=== PATIENT | female | born 1990 | race American Indian/Alaskan Native ===

== ENCOUNTER 2017-11-24 15:46 | Emergency (ER) | payer OTHER ==
[2017-11-24 15:54] VITALS: BMI 25.8
[2017-11-24 15:57] VITALS: TEMP 98.6
--- NOTE | 2017-11-24 16:40 | C.PDOC ---
History Of Present Illness 27 year old female brought to the ER for medical clearance. Last Wednesday patient was diagnosed with bipolar disorder at a [facility] outpatient psychiatric clinic. Grandmother is a patient in the ICU here. Patient went up to see grandmother, became upset, and started crying and hitting fists into wall so she was brought down for evaluation. Now complaining of pain in her right wrist. Patient states she was put on psychiatric meds, which she did not take today. Denies any suicidal or homicidal ideation. PMD: Non [facility] provider Time Seen by Provider: 11/24/17 16:16 Chief Complaint (Nursing): Medical Clearance History Per: Patient, Family History/Exam Limitations: no limitations Onset/Duration Of Symptoms: Mins Current Symptoms Are (Timing): Still Present Quality: Aching Severity: Mild Pain Scale Rating Of: 2 Exacerbating Factor(s): Movement Recent travel outside of the [place]: No Past Medical History Reviewed: Historical Data, Nursing Documentation, Vital Signs Vital Signs: Last Vital Signs Temp 98.6 F 11/24/17 17:35 Pulse 90 11/24/17 17:35 Resp 18 11/24/17 17:35 BP 111/72 11/24/17 17:35 Pulse Ox 100 11/24/17 17:35 - Medical History PMH: Bipolar Disorder Surgical History: No Surg Hx Family History: States: No Known Family Hx - Social History Hx Alcohol Use: No Hx Substance Use: No - Immunization History Hx Tetanus Toxoid Vaccination: No Hx Influenza Vaccination: No Hx Pneumococcal Vaccination: No Review Of Systems Except As Marked, All Systems Reviewed And Found Negative. Constitutional: Negative for: Fever Cardiovascular: Negative for: Chest Pain Respiratory: Negative for: Shortness of Breath Gastrointestinal: Negative for: Vomiting Musculoskeletal: Positive for: Other (right wrist pain) Psych: Positive for: Anxiety, Other (Agitated, upset). Negative for: Suicidal ideation (or homicidal ideation) Physical Exam - Physical Exam Appears: Non-toxic, No Acute Distress Skin: Normal Color, Warm, Dry Head: Atraumatic, Normacephalic Eye(s): bilateral: Normal Inspection, PERRL, EOMI Nose: Normal Oral Mucosa: Moist Neck: Normal ROM, Supple Chest: Symmetrical Cardiovascular: Rhythm Regular Respiratory: Normal Breath Sounds Extremity: Normal ROM Pulses: Left Radial: Normal, Right Radial: Normal Neurological/Psych: Oriented x3, Normal Speech Gait: Steady ED Course And Treatment O2 Sat by Pulse Oximetry: 95 (RA) Pulse Ox Interpretation: Normal - Other Rad right wrist X-Ray: Viewed By Me, Read By Radiologist Interpretation: No acute displaced fracture or dislocation identified. Progress Note: Patient crying and upset. Right wrist full ROM. Advised to take her prescribed psych drugs. On re-evaluation feeling better, calm. Discharged in stable condition. Advised to follow up with Psych services Reassessment Condition: Improved Medical Decision Making Medical Decision Making: Time: 16:32 Initial Plan: * X-ray Right Wrist X-Ray findings discussed w/ patient. Patient is stable for discharge home. Advised to take medications as prescribed and follow up outpatient. Disposition Counseled Patient/Family Regarding: Need For Followup - Disposition Referrals: [facility] [Outside] [facility] [Outside] Disposition: HOME/ ROUTINE Disposition Time: 18:20 Condition: STABLE Additional Instructions: Take medications as directed Follow up with your mental health providers Instructions: Panic Disorder, Wrist Sprain (DC) Forms: [employer] (Hungarian) - POA Present On Arrival: None - Clinical Impression Clinical Impression: Anxiety, Contusion, wrist - PA / EDUCATION REPORTER / Resident Statement MD/DO has reviewed & agrees with the documentation as recorded. - Scribe Statement The provider has reviewed the documentation as recorded by the Scribe (Christine Sherman) All medical record entries made by the Scribe were at my direction and personally dictated by me. I have reviewed the chart and agree that the record accurately reflects my personal performance of the history, physical exam, medical decision making, and the department course for this patient. I have also personally directed, reviewed, and agree with the discharge instructions and disposition.
--- NOTE | 2017-11-24 17:21 | RAD ---
PROCEDURE: Right Wrist Radiographs. HISTORY: pain COMPARISON: None available. FINDINGS: BONES: No acute displaced fracture. JOINTS: No dislocation. SOFT TISSUES: Unremarkable. No evidence of radiopaque foreign body OTHER FINDINGS: None. IMPRESSION: No acute displaced fracture or dislocation identified. If symptoms persist, or if there is continued clinical concern, x-ray follow-up in 7-10 days should be considered.
[2017-11-24 17:44] VITALS: BP 111/72; PULSE 90; RESP 18
[2017-11-24 18:24] VITALS: O2SAT 95
== END 2017-11-24 17:40 | disposition home or self-care (01) ==
LOC: C.ER 15:46
DX: S60.211A Contusion of right wrist, initial encounter (principal); W22.01XA Walked into wall, initial encounter; F41.9 Anxiety disorder, unspecified

== ENCOUNTER 2017-11-24 19:30 | Emergency (ER) | payer OTHER ==
[2017-11-24 19:20] VITALS: BMI 25.8
[2017-11-24 20:31] LABS: HCG,QUALITATIVE URINE NEGATIVE (NEGATIVE)
[2017-11-24 20:35] LABS: SQUAMOUS EPITHIAL 24 /hpf (0-5); URINE BACTERIA RARE (<OCC); URINE BILIRUBIN NEGATIVE (NEGATIVE); URINE CLARITY Hazy (Clear); URINE COLOR Yellow (YELLOW); URINE GLUCOSE (UA) NORMAL (Normal); URINE NITRATE NEGATIVE (NEGATIVE); URINE PROTEIN 1+ mg/dL (NEGATIVE)
[2017-11-24 20:36] LABS: URINE BLOOD 1+ (NEGATIVE); URINE LEUKOCYTE ESTERASE 1+ Leu/uL (Negative)
[2017-11-24 20:56] LABS: BENZODIAZEPINES, UR NEGATIVE (NEGATIVE); OPIATES, UR NEGATIVE (NEGATIVE); PHENCYCLIDINE, UR NEGATIVE (NEGATIVE)
[2017-11-24 21:16] LABS: BARBITURATES, UR POSITIVE (NEGATIVE)
[2017-11-24 21:43] LABS: BASO # 0.1 K/uL (0.0-0.2); EOS # 0.1 K/uL (0.0-0.7); EOS % 0.8 % (0.0-4.0); HEMOGLOBIN 13.8 g/dL (11.0-16.0); LYMPH # 2.7 K/uL (1.0-4.3); LYMPH % 31.5 % (20.0-40.0); MEAN CELL VOLUME 95.8 fL (81.0-99.0); MEAN CORPUSCULAR HEMOGLOBIN 32.9 pg (27.0-31.0); MEAN CORPUSCULAR HGB CONC 34.3 g/dL (33.0-37.0); MEAN PLATELET VOLUME 8.4 fL (7.2-11.7); MONO # 0.5 K/uL (0.0-0.8); MONO % 5.7 % (0.0-10.0); NEUT # 5.2 K/uL (1.8-7.0); NRBC % 0.1 % (0.0-2.0); RBC 4.19 Mil/uL (3.80-5.20); RED CELL DISTRIBUTION WIDTH 13.1 % (11.5-14.5); WHITE BLOOD COUNT 8.6 K/uL (4.8-10.8)
[2017-11-24 21:57] LABS: ALB/GLOB RATIO 1.3 (1.0-2.1); ALBUMIN 4.3 g/dL (3.5-5.0); ALT/SGPT 21 U/L (9-52); AST/SGOT 26 U/L (14-36); BLOOD UREA NITROGEN 10 mg/dL (7-17); CALCIUM 8.9 mg/dl (8.6-10.4); GFR AFRICAN-AMERICAN > 60; GFR NON-AFRICAN AMERICAN > 60
--- NOTE | 2017-11-24 22:39 | C.PDOC ---
History Of Present Illness 27 year old female presents to the ED for evaluation of suicidal ideation. Patient was recently diagnosed with schizophrenia. She states that she wants to hurt herself but does not have a plan. Family at bedside stating that patient is not complaint with her psychiatric medications. Time Seen by Provider: 11/24/17 20:36 Chief Complaint (Nursing): Psychiatric Evaluation History Per: Patient, Family History/Exam Limitations: no limitations Onset/Duration Of Symptoms: Unknown Current Symptoms Are (Timing): Still Present Modifying Factor(s): None Associated Symptoms: Suicidal Thoughts. denies: Suicidal Plan Involuntary Hold By: None Recent travel outside of the [place]: No Additional History Per: Family Past Medical History Reviewed: Historical Data, Nursing Documentation, Vital Signs Vital Signs: Last Vital Signs Temp 97.9 F 11/25/17 00:41 Pulse 59 L 11/25/17 00:41 Resp 16 11/25/17 00:41 BP 111/74 11/25/17 00:41 Pulse Ox 98 11/25/17 00:41 - Medical History PMH: Bipolar Disorder Denies: Diabetes, Hepatitis, HIV, HTN, Seizures, Sexually Transmitted Disease Family History: States: No Known Family Hx - Social History Hx Alcohol Use: No Hx Substance Use: No - Immunization History Hx Tetanus Toxoid Vaccination: No Hx Influenza Vaccination: No Hx Pneumococcal Vaccination: No Review Of Systems Constitutional: Negative for: Fever, Chills ENT: Negative for: Ear Pain, Throat Pain Cardiovascular: Negative for: Chest Pain Respiratory: Negative for: Cough, Shortness of Breath Gastrointestinal: Negative for: Nausea, Vomiting, Abdominal Pain, Diarrhea Genitourinary: Negative for: Dysuria Skin: Negative for: Rash Neurological: Negative for: Headache Psych: Positive for: Suicidal ideation Physical Exam - Physical Exam Appears: Non-toxic, No Acute Distress Skin: Warm, Dry Head: Normacephalic Eye(s): bilateral: Normal Inspection Oral Mucosa: Moist Teeth: Normal Dentition Neck: Trachea Midline, Supple Chest: Symmetrical Cardiovascular: Rhythm Regular (Rate Regular) Respiratory: No Rales, No Rhonchi, No Wheezing Gastrointestinal/Abdominal: Soft, No Tenderness, No Distention Back: Normal Inspection Extremity: Normal ROM, Other (DP pulses 2+) Extremity: Bilateral: Atraumatic, No Pedal Edema, Normal Color And Temperature Neurological/Psych: Oriented x3, Normal Speech, Other (Flat affect ) ED Course And Treatment - Laboratory Results Result Diagrams: 11/24/17 21:40 11/24/17 21:40 ECG: Interpreted By Me, Viewed By Me ECG Rhythm: Sinus Rhythm (65), Nonspecific Changes O2 Sat by Pulse Oximetry: 98 Pulse Ox Interpretation: Normal - Radiology CXR: Interpreted by Me, Viewed By Me CXR Interpretation: No: Infiltrates, Fracture, Pnemothorax Progress Note: Patient evaluated by crisis . Pt was screened and found NOT to be commitable. Mother states that she will take the pt home. Cleared for discharge by dr serrano Reevaluation Time: 03:41 Reassessment Condition: Improved Disposition Counseled Patient/Family Regarding: Studies Performed, Diagnosis, Need For Followup, Rx Given - Disposition [facility] Disposition: HOME/ ROUTINE Disposition Time: 00:35 Condition: FAIR Prescriptions: Ondansetron ODT [Zofran ODT] 1 odt PO BID PRN #6 odt PRN Reason: Nausea/Vomiting Instructions: Depression Forms: [employer] (Yemeni) - Clinical Impression Clinical Impression: Depression - Scribe Statement The provider has reviewed the documentation as recorded by the Danyellibsheila Araya Provider Attestation: All medical record entries made by the Scribe were at my direction and personally dictated by me. I have reviewed the chart and agree that the record accurately reflects my personal performance of the history, physical exam, medical decision making, and the department course for this patient. I have also personally directed, reviewed, and agree with the discharge instructions and disposition.
[2017-11-25 00:42] VITALS: RESP 16; TEMP 97.9
[2017-11-25 03:46] VITALS: BP 109/69; PULSE 75; O2SAT 100
--- NOTE | 2017-11-25 09:15 | RAD ---
Chest x-ray single frontal view History: Psychiatric screening. Comparison: None available. Findings: Mild patchy increased markings at the left lung base with a suggestion of a trace left pleural effusion. Correlation with lateral view may be helpful if clinically indicated. Scoliotic curvature of the spine. Venous congestion. Impression: Mild patchy increased markings at the left lung base with a suggestion of a trace left pleural effusion. Correlation with lateral view may be helpful if clinically indicated. Scoliotic curvature of the spine. Venous congestion.
--- NOTE | 2017-11-26 12:04 | CARD ---
APPROVED REPORT EKG Measurement Heart [id number] <Conclusion> Normal sinus rhythm with sinus arrhythmia Possible Left atrial enlargement Borderline ECG
== END 2017-11-25 03:46 | disposition home or self-care (01) ==
LOC: C.ER 19:30
DX: F32.9 Major depressive disorder, single episode, unspecified (principal)